=== PATIENT | male | born 1980 | race Caucasian/White ===

== ENCOUNTER 2018-02-25 13:17 | Inpatient (IN) | payer OTHER ==
[~2018-02-25] VITALS: Ht 182.9 cm; Wt 106.6 kg
[2018-02-25 14:42] LABS: Basophils # (auto) 0.1 uL; Basophils % (auto) 0.5 % (0.0-2.0); Eosinophils # (auto) 0 uL; Eosinophils % (auto) 0.2 % (0.0-7.0); Hematocrit 49.4 % (41.0-53.0); Hemoglobin 16.8 g/dL (13.5-17.5); Lymphocytes # (auto) 1.7 uL; Lymphocytes % (auto) 15.3 % (10.0-50.0); Mean Corpuscular Hemoglobin 33.5 pg (28.0-32.0); Mean Corpuscular Volume 98.5 fL (80.0-100.0); Monocytes # (auto) 0.8 uL; Monocytes % (auto) 7.5 % (0.0-12.0); Neutrophils # (auto) 8.3 uL; Neutrophils % (auto) 76.5 % (37.0-80.0); Nucleated Red Blood Cells % 0.1 %; Platelet Count (auto) 124 10^3/uL (140-450); Red Blood Cells 5.01 10^6/uL (4.5-5.90); Red Cell Distribution Width 15.1 % (11.8-14.3); White Blood Cell 10.8 10^3/uL (4.4-10.8)
[2018-02-25 14:52] LABS: Albumin 3.9 g/dL (3.4-5.0); BUN/Creatinine Ratio 14.2; Calcium 8.8 mg/dL (8.5-10.1); Magnesium 2.4 mg/dL (1.6-2.6); Potassium 4.5 mmol/L (3.5-5.1)
[2018-02-25 14:54] LABS: Bilirubin, Total 1.2 mg/dL (0.2-1.0); Total Protein 7.6 g/dL (6.4-8.2)
[2018-02-25] MEDS ORDERED: SODIUM CHLORIDE 0.9% 1,000 ML IV ONE (16:43)
[2018-02-25] MEDS ORDERED: MORPHINE SULFATE 8mg/ml INJ SDV IV PRN ×3 (16:45→18:30)
[2018-02-25] MEDS ORDERED: ASPirin 81 mg TAB PO ONE (16:45)
[2018-02-25] MEDS ORDERED: ONDANSETRON HCL 4 MG/2 ML VIAL IV ONE (17:30)
[2018-02-25 17:40] LABS: INR 1.06 (0.9-1.15); Prothrombin Time 11.6 sec (9.37-12.3)
[2018-02-25] MEDS ORDERED: FUROSEMIDE 40 MG/4 ML VIAL IV ONE ×2 (17:45→18:45)
[2018-02-25] MEDS ORDERED: cefTRIAXone 1GM/10ml IVPUSH 10 ML IV ONE (17:45)
[2018-02-25] MEDS ORDERED: LACTULOSE 20Gm/30ML SOLN PO PRN (18:30)
[2018-02-25] MEDS ORDERED: HYDROcodone-ACET 5/325MG TAB PO PRN (18:30)
[2018-02-25] MEDS ORDERED: NITROGLYCERIN 0.4 MG SL TAB SL PRN (18:30)
[2018-02-25] MEDS ORDERED: TEMAZEPAM 15 MG CAP PO PRN (18:30)
[2018-02-25] MEDS ORDERED: DEXTROSE (50%) 50ML SYRG IV PRN (18:30)
[2018-02-25] MEDS ORDERED: LORazepam 0.5 MG TAB PO PRN (18:30)
[2018-02-25] MEDS ORDERED: PROMETHAZINE HCL 25 MG/ML 1ML IV PRN (18:30)
[2018-02-25] MEDS ORDERED: ACETAMINOPHEN 500 MG TAB PO PRN (18:30)
[2018-02-25] MEDS ORDERED: AZITHROMYCIN 500MG/ 250ML 250 ML IV SCH (18:35)
[2018-02-25] MEDS ORDERED: PANTOPRAZOLE 40 MG TAB PO SCH (18:38)
[2018-02-25] MEDS ORDERED: POTASSIUM CHL 20 Meq TABLET PO ONE (18:45)
[2018-02-25] MEDS ORDERED: ENALAPRIL MALEATE 2.5 MG TAB PO ONE (18:45)
[2018-02-25] MEDS ORDERED: IOHEXOL 350 MG/ML 100ML IJ ONE (18:51)
[2018-02-25] MEDS ORDERED: HEPARIN SODIUM (PORCINE) 5000 UNITS/ML 1ML VIAL IV ONE (20:15)
[2018-02-25] MEDS ORDERED: chlordiazePOXIDE HCL 25 MG CAP PO PRN (20:15)
[2018-02-25] MEDS ORDERED: THIAMINE HCL 100 MG/ML 2ML VIAL IV ONE (20:15)
[2018-02-25] MEDS ORDERED: HEPARIN DRIP/D5W 100UNITS/ML 250 ML IV SCH (20:30)
[2018-02-25 20:41] LABS: Urine Bacteria NONE SEEN /hpf (None Seen); Urine Blood Negative /uL (Negative); Urine Specific Gravity 1.027 (1.001-1.035); Urine WBC 18 /hpf (0 - 3)
[2018-02-25 20:52] LABS: Alcohol, Urine < 3.0 mg/dL (0-5); Amphetamine Screen, Urine NEGATIVE (NEGATIVE); Barbiturate Scree,Urine NEGATIVE (NEGATIVE); Benzodiazephine Screen, Urine NEGATIVE (NEGATIVE); Cannabinoid Screen, Urine NEGATIVE (NEGATIVE); Cocaine Screen, Urine POSITIVE (NEGATIVE); Opiate Scree,Urine NEGATIVE (NEGATIVE); Phencyclidine Screen, Urine NEGATIVE (NEGATIVE)
[2018-02-25] MEDS ORDERED: WARFARIN SODIUM 5 MG TAB PO ONE (21:00)
[2018-02-25] MEDS: SODIUM CHLOR 0.9% PF (SALINE LOCK) 10ML VIAL/SYR IV SCH (21:22)
[2018-02-25] MEDS ORDERED: CARVEDILOL 3.125 MG TAB PO SCH (22:00)
[2018-02-26] MEDS: ACCU-CHEK COMFORT CURVE STRIP VI SCH ×2 (00:26→06:25)
[2018-02-26] MEDS: chlordiazePOXIDE HCL 5 MG CAP PO SCH ×2 (00:29→06:10)
[2018-02-26 04:16] LABS: INR 1.1 (0.9-1.15); Partial Thromboplastin Time 32.2 sec (22.64-33.71)
[2018-02-26] MEDS: SODIUM CHLOR 0.9% PF (SALINE LOCK) 10ML VIAL/SYR IV SCH (05:00)
[2018-02-26] MEDS ORDERED: HEPARIN SODIUM (PORCINE) 5000 UNITS/ML 1ML VIAL IV ONE (05:00)
[2018-02-26 05:35] LABS: Basophils # (auto) 0.1 uL; Basophils % (auto) 0.5 % (0.0-2.0); Eosinophils # (auto) 0 uL; Eosinophils % (auto) 0.3 % (0.0-7.0); Hematocrit 48.6 % (41.0-53.0); Hemoglobin 16.1 g/dL (13.5-17.5); Lymphocytes % (auto) 17.7 % (10.0-50.0); Mean Corpuscular Hemoglobin 33.1 pg (28.0-32.0); Mean Corpuscular Hgb Conc. 33.2 g/dL (32.0-36.0); Mean Corpuscular Volume 99.7 fL (80.0-100.0); Monocytes # (auto) 0.8 uL; Monocytes % (auto) 7.2 % (0.0-12.0); Neutrophils # (auto) 8.4 uL; Neutrophils % (auto) 74.3 % (37.0-80.0); Nucleated Red Blood Cells % 0.2 %; Platelet Count (auto) 110 10^3/uL (140-450); Red Blood Cells 4.88 10^6/uL (4.5-5.90); Red Cell Distribution Width 15.1 % (11.8-14.3); White Blood Cell 11.4 10^3/uL (4.4-10.8)
[2018-02-26 05:56] LABS: Albumin 3.8 g/dL (3.4-5.0); BUN/Creatinine Ratio 14.6; Bilirubin, Total 1.3 mg/dL (0.2-1.0); Calcium 8.2 mg/dL (8.5-10.1); Total Protein 7.2 g/dL (6.4-8.2)
[2018-02-26 06:10] LABS: Potassium 6.4 mmol/L (3.5-5.1)
[2018-02-26 06:30] VITALS: BP 91/76
[2018-02-26 07:31] LABS: BUN/Creatinine Ratio 13.3; Calcium 7.9 mg/dL (8.5-10.1)
[2018-02-26] MEDS ORDERED: SODIUM BICARBONATE 8.4% INJ 50ML SYRINGE ONE (07:44)
[2018-02-26] MEDS ORDERED: NOREPINEPHRINE 16 MG/500ML KIT 500 ML IV ONE (07:57)
[2018-02-26] MEDS ORDERED: MIDAZOLAM DRIP 50 mg/50mL 50 ML IV ONE (07:57)
[2018-02-26] MEDS ORDERED: cefTRIAXone 1GM/10ml IVPUSH 10 ML IV SCH (09:00)
[2018-02-26] MEDS ORDERED: ENALAPRIL MALEATE 2.5 MG TAB PO SCH (10:00)
[2018-02-26] MEDS ORDERED: ASPirin 81 mg TAB PO SCH (10:00)
[2018-02-26] MEDS ORDERED: THIAMINE HCL 100 MG/ML 2ML VIAL IV SCH (10:00)
[2018-02-26] MEDS ORDERED: NITROGLYCERIN 0.2MG/HR TOPICAL PATCH TD SCH (10:00)
[2018-02-26] MEDS ORDERED: POTASSIUM CHL 20 Meq TABLET PO SCH (10:00)
[2018-02-26] MEDS ORDERED: FUROSEMIDE 40 MG/4 ML VIAL IV SCH (10:00)
[2018-02-26] MEDS ORDERED: AMIODARONE HCL (50 MG/ ML) 3 ML VIAL IV ONE (13:54)
[2018-02-26] MEDS ORDERED: EPINEPHrine HCL 1 MG/10 ML SYRG IV ONE (13:54)
[2018-02-26] MEDS ORDERED: CALCIUM CHLOR(10%) 100MG/ML 10ML SYRINGE IV ONE (13:54)
[2018-02-26] MEDS ORDERED: SODIUM BICARBONATE 8.4% INJ 50ML SYRINGE IV ONE (13:54)
[2018-02-26] MEDS ORDERED: WARFARIN SODIUM 10 MG TAB PO ONE (17:00)
[2018-02-27] MEDS ORDERED: MIDAZOLAM DRIP 50 mg/50mL 50 ML IV SCH (17:02)
== END 2018-02-26 09:08 | disposition expired | DRG 311 ==
LOC: ER 13:19 → TELE 13:20
PROVIDERS: ADMIT Internal Medicine; ATTEND Family Medicine
DX: I24.9 Acute ischemic heart disease, unspecified (principal); I46.9 Cardiac arrest, cause unspecified; J18.1 Lobar pneumonia, unspecified organism; E11.22 Type 2 diabetes mellitus with diabetic chronic kidney disease; D69.6 Thrombocytopenia, unspecified; I50.9 Heart failure, unspecified; E87.5 Hyperkalemia; N18.3 Chronic kidney disease, stage 3 (moderate); F15.90 Other stimulant use, unspecified, uncomplicated; F17.210 Nicotine dependence, cigarettes, uncomplicated; I44.7 Left bundle-branch block, unspecified; Z79.01 Long term (current) use of anticoagulants; Z82.49 Family history of ischemic heart disease and other diseases of the circulatory system; Z91.14 Patient's other noncompliance with medication regimen; Z95.1 Presence of aortocoronary bypass graft; Z95.2 Presence of prosthetic heart valve; I25.2 Old myocardial infarction; Z90.49 Acquired absence of other specified parts of digestive tract
CPT/HCPCS: 36415; 71045; 71046; 71275; 80048; 80053; 80061; 80307; 81001; 82550; 82962; 83036; 83735; 83880; 84443; 84484; 85025; 85379; 85610; 85652; 85730; 86141; 87040; 87070; 87205; 92950; 93005; 94002; 96361; 96374; 96375; J2250; J2270; J2405